=== PATIENT | male | born 1980 | race African-American/Black ===

== ENCOUNTER 2018-09-19 00:59 | Emergency (ER) | payer OTHER ==
[~2018-09-19] VITALS: Ht 175.3 cm; Wt 56.7 kg
[~2018-09-19 00:59] MED LIST: LEVO750T31 PO; TRAM50TA PO
--- NOTE | 2018-09-19 01:18 | PHYS DOC ---
Past Medical History Past Medical History: Other Additional Past Medical Histor: SPONTANEOUS PNEUMOTHORAX Past Surgical History: Other Additional Past Surgical Histo: CHEST TUBE PLACEMENT Alcohol Use: Heavy Drug Use: None Adult General Chief Complaint Chief Complaint: SHORTNESS OF BREATH HPI HPI Patient is a 38 year old -[place] male with history of right-sided pneu mothorax who was discharged from [facility] yesterday after a 6 day stay for being treated for the same who presents with shortness of breath starting 1 hour prior to ED arrival. Patient was sitting when his when symptoms began. Denies chest pain. Shortness breath is since resolved but states he is concerned that he may have had a recurrence of pneumothorax. No fever chil ls, nausea vomiting or sweats. No other acute symptoms or complaints.[] Review of Systems Review of Systems ROS as per HPI. All other systems were reviewed and found to be within normal limits, except as documented in this note. Allergies Allergies Allergies Coded Allergies Type Severity Reaction Last Updated Verified No Known Drug Allergies 12/13/15 No Physical Exam Physical Exam Constitutional: Well developed, well nourished, no acute distress. [] HENT: Normocephalic, atraumatic, bilateral external ears normal, oropharynx moist, nose normal. [] Eyes: PERRLA, EOMI, conjunctiva normal. [] Neck: Normal range of motion, no tenderness, supple. [] Cardiovascular:Heart rate regular rhythm, no murmur. No subcutaneous emphysema, crepitus. Right mid axillary chest wall bandage is present . [] Lungs & Thorax: Bilateral breath sounds clear to auscultation. [] Abdomen: Bowel sounds normal, soft, no tenderness. [] Skin: Warm, dry. [] Back: No tenderness. [] Extremities: No tenderness, negative Kenneth's sign. [] Neurologic: Alert and oriented X 3, normal motor function, normal sensory function, no focal deficits noted. [] Psychologic: Affect normal, judgement normal, mood normal. [] Current Patient Data Vital Signs Vital Signs Date Time Temp Pulse Resp B/P (MAP) Pulse Ox O2 Delivery O2 Flow Rate FiO2 09/19/18 01:00 98.4 106 22 137/91 (106) 98 Room Air 98.4 Lab Values Laboratory Tests Test 09/19/18 01:25 White Blood Count 7.0 x10^3/uL (4.0-11.0) Red Blood Count 4.50 x10^6/uL (4.30-5.70) Hemoglobin 14.9 g/dL (13.0-17.5) Hematocrit 43.2 % (39.0-53.0) Mean Corpuscular Volume 96 fL (79-100) Mean Corpuscular Hemoglobin 33 pg (25-35) Mean Corpuscular Hemoglobin Concent 34 g/dL (31-37) Red Cell Distribution Width 13.7 % (11.5-14.5) Platelet Count 176 x10^3/uL (140-400) Neutrophils (%) (Auto) 72 % (31-73) Lymphocytes (%) (Auto) 13 % (24-48) L Monocytes (%) (Auto) 14 % (0-9) H Eosinophils (%) (Auto) 1 % (0-3) Basophils (%) (Auto) 1 % (0-3) Neutrophils # (Auto) 5.0 x10^3uL (1.8-7.7) Lymphocytes # (Auto) 0.9 x10^3/uL (1.0-4.8) L Monocytes # (Auto) 1.0 x10^3/uL (0.0-1.1) Eosinophils # (Auto) 0.1 x10^3/uL (0.0-0.7) Basophils # (Auto) 0.1 x10^3/uL (0.0-0.2) Sodium Level 128 mmol/L (136-145) L Potassium Level 3.7 mmol/L (3.5-5.1) Chloride Level 90 mmol/L (98-107) L Carbon Dioxide Level 26 mmol/L (21-32) Anion Gap 12 (6-14) Blood Urea Nitrogen 6 mg/dL (8-26) L Creatinine 0.7 mg/dL (0.7-1.3) Estimated GFR (Cockcroft-Gault) 152.7 Glucose Level 81 mg/dL (70-99) Calcium Level 8.9 mg/dL (8.5-10.1) Laboratory Tests 09/19/18 01:25 Laboratory Tests 09/19/18 01:25 EKG EKG [EKG: reviewed] Radiology/Procedures Radiology/Procedures CXR: Right sided pneumotx[] Course & Med Decision Making Course & Med Decision Making Pertinent Labs and Imaging studies reviewed. (See chart for details) [Right-sided pneumothorax. Vital signs stable. No distress. Patient placed on nonrebreather. Patient will require VATS with pleurodesis with decision to place chest tube in the emergency department and referred to CT surgery. CT surgery unavailable at this facility. Patient accepted to [facility] per Dr. Holland] Hugo Disclaimer Hugo Disclaimer This electronic medical record was generated, in whole or in part, using a voice recognition dictation system. Departure Departure Impression: Primary Impression: Pneumothorax Disposition: 02 TRANSFER [facility] Condition: STABLE Referrals: NO PCP (PCP) Scripts No Active Prescriptions or Reported Meds RASHEED ANAYA DO Sep 19, 2018 01:18
[2018-09-19 02:03] LABS: BASO # 0.1 x10^3/uL (0.0-0.2); BASO % 1 % (0-3); EOS # 0.1 x10^3/uL (0.0-0.7); EOS % 1 % (0-3); HEMATOCRIT 43.2 % (39.0-53.0); HEMOGLOBIN 14.9 g/dL (13.0-17.5); LYMPH # 0.9 x10^3/uL (1.0-4.8); LYMPH % 13 % (24-48); MEAN CORPUSCULAR HEMOGLOBIN 33 pg (25-35); MEAN CORPUSCULAR HGB CONC 34 g/dL (31-37); MEAN CORPUSCULAR VOLUME 96 fL (79-100); MONO % 14 % (0-9); NEUT % 72 % (31-73); PLATELET COUNT 176 x10^3/uL (140-400); RED CELL DISTRIBUTION WIDTH 13.7 % (11.5-14.5)
[2018-09-19 02:12] LABS: CALCIUM 8.9 mg/dL (8.5-10.1); CREATININE 0.7 mg/dL (0.7-1.3); GFR 152.7; POTASSIUM 3.7 mmol/L (3.5-5.1)
[2018-09-19 02:53] VITALS: BP 137/86
--- NOTE | 2018-09-19 07:18 | RAD ---
AP chest. Short of air AP view was taken of the chest. Patient has a large right pneumothorax. There are changes from previous surgeries. There is scarring and pleural thickening on the left. The ER was called and notified of the findings, the patient had been transferred to the [facility]. IMPRESSION: 1. Right pneumothorax. Electronically signed by: Nic Posada MD (09/19/2018 7:15 AM) [id number]
--- NOTE | 2018-09-19 15:33 | EKG ---
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
== END 2018-09-19 03:25 | disposition short-term general hospital (02) ==
LOC: ER 00:59
DX: J93.9 Pneumothorax, unspecified (principal); F10.20 Alcohol dependence, uncomplicated; Y90.9 Presence of alcohol in blood, level not specified; Z97.8 Presence of other specified devices
CPT/HCPCS: 36415; 71045; 80048; 85025; 93005; 99285-25

== ENCOUNTER 2018-09-29 01:44 | Emergency (ER) | payer OTHER ==
[~2018-09-29] VITALS: Ht 175.3 cm; Wt 56.7 kg
[2018-09-29 02:05] VITALS: BP 149/94
--- NOTE | 2018-09-29 02:48 | RAD ---
PA and lateral chest radiographs 09/29/2018 CLINICAL HISTORY: Chest pain. PA and lateral digital radiographs of the chest were obtained. Comparison study is dated 09/19/2018. What appear to be surgical clips are seen within the right upper lobe. A thoracostomy tube extends into the anterior right pleural space within the right lung base. The cardiac silhouette is normal in size. The thoracic aorta is minimally tortuous. Surgical clips overlie the medial aspect of the left upper lobe. The right pneumothorax seen on the previous examination has resolved. No acute pulmonary infiltrate is seen. No pleural effusion is noted. The osseous structures are unchanged. IMPRESSION: Right thoracostomy tube is seen within the anterior right pleural space. No pneumothorax is seen. Electronically signed by: Juan Carlos Pemberton MD (09/29/2018 2:45 AM) [facility]
--- NOTE | 2018-09-29 03:01 | PHYS DOC ---
Past Medical History Past Medical History: Other Additional Past Medical Histor: SPONTANEOUS PNEUMOTHORAX X 4 Past Surgical History: Other Additional Past Surgical Histo: CHEST TUBE PLACEMENT Alcohol Use: Heavy Drug Use: None Adult General Chief Complaint Chief Complaint: SHORTNESS OF BREATH HPI HPI Patient is a 38 -year-old male with history of recurrent pneumothoraces currently with right sided chest tube with suction device attached who presents with right-sided chest pain and concern for recurrence of pneumothorax. Most recent chest tube was placed at [facility] last week. Patient reports pain over chest tube insertion site. No fever chills nausea vomiting or sweats.[] Review of Systems Review of Systems Review symptoms as per history of present illness. All other systems were reviewed and found to be within normal limits, except as documented in this note. Allergies Allergies Allergies Coded Allergies Type Severity Reaction Last Updated Verified No Known Drug Allergies 12/13/15 No Physical Exam Physical Exam Constitutional: Well developed, well nourished, no acute distress, non-toxic appearance. [] HENT: Normocephalic, atraumatic, bilateral external ears normal, oropharynx moist, no oral exudates, nose normal. [] Eyes: PERRLA, EOMI, conjunctiva normal, no discharge. [] Neck: Normal range of motion, no tenderness, supple, no stridor. [] Cardiovascular:Heart rate regular rhythm, no murmur [] Lungs & Thorax: Bilateral breath sounds clear to auscultation, no chest wall crepitus, subcutaneous emphysema. Thoracostomy tube present[] Abdomen: Bowel sounds normal, soft, no tenderness, no masses, no pulsatile masses. [] Skin: Warm, dry, no erythema, no rash. [] Back: No tenderness, no CVA tenderness. [] Extremities: No tenderness, no cyanosis, no clubbing, ROM intact, no edema. [] Neurologic: Alert and oriented X 3, normal motor function, normal sensory function, no focal deficits noted. [] Psychologic: Affect normal, judgement normal, mood normal. [] Current Patient Data Vital Signs Vital Signs Date Time Temp Pulse Resp B/P (MAP) Pulse Ox O2 Delivery O2 Flow Rate FiO2 09/29/18 02:05 99.1 98 16 149/94 (112) 97 Room Air 99.1 EKG EKG [] Radiology/Procedures Radiology/Procedures [Asked x-ray: No pneumothorax per radiology report] Course & Med Decision Making Course & Med Decision Making Pertinent Labs and Imaging studies reviewed. (See chart for details) [] Dragon Disclaimer Dragon Disclaimer This electronic medical record was generated, in whole or in part, using a voice recognition dictation system. Departure Departure Impression: Primary Impression: Chest wall pain Disposition: HOME, SELF-CARE Condition: STABLE Referrals: JAGRUTI STANLEY (PCP) Patient Instructions: Chest Wall Pain, [id number] Additional Instructions: Chest x-ray was performed and does not show presence of pneumothorax. Please con tinue discharge instructions provided to by [facility]. Follow up with [facility] as scheduled. Scripts No Active Prescriptions or Reported Meds RASHEED ANAYA DO Sep 29, 2018 03:01
== END 2018-09-29 03:15 | disposition home or self-care (01) ==
LOC: ER 01:44
DX: R07.89 Other chest pain (principal); F10.20 Alcohol dependence, uncomplicated; Y90.9 Presence of alcohol in blood, level not specified
CPT/HCPCS: 71046; 99284

== ENCOUNTER → 2019-09-26 | Outpatient (CLI) | payer SELFPAY ==
--- NOTE | 2019-09-26 15:04 | RAD ---
EXAM: CHEST 2 VIEWS. HISTORY: Cough. COMPARISON: 09/29/2018. FINDINGS: Frontal and lateral views of the chest are obtained. Blunting of the left costophrenic angle appears slightly progressed on the frontal view. Opacity posteriorly in the costophrenic angles on the lateral projection has progressed, possibly reflecting mildly increased elevation of the left hemidiaphragm. Pleural parenchymal scarring in the left base is increased. Another focus of scarring in the right upper lobe laterally is stable. A lung suture line is noted in the left apex. A small left pleural effusion cannot be excluded. There is no pneumothorax. The heart is not enlarged. IMPRESSION: 1. Increased scarring versus a small pleural effusion in the left costophrenic angle. Correlate for evidence of infection to exclude a left lower lobe infiltrate. Electronically signed by: Juan Caraballo MD (09/26/2019 3:01 PM) [id number]
== END | disposition home or self-care (01) ==
LOC: RAD 14:05
PROVIDERS: ATTEND Family Medicine
DX: J98.4 Other disorders of lung (principal); R05 Cough
CPT/HCPCS: 71046